=== PATIENT | male | born 1995 | race African-American/Black ===

== ENCOUNTER 2025-04-22 00:47 | Emergency (ER) | payer SELFPAY ==
[2025-04-22] VITALS (20 sets, daily range): BP systolic 110–141; BP diastolic 67–91; PULSE 84–110; RESP 11–25; O2SAT 92–100
--- NOTE | ~2025-04-22 | XR_ITS ---
Examination: XR chest 1V portable Clinical History: CHEST PAIN Comparison: None Technique: Portable AP Findings: Heart size normal. Lungs clear. No acute bony abnormality. IMPRESSION: 1. No acute cardiopulmonary findings given portable technique. Reviewed, dictated and finalized at location [facility]
--- NOTE | 2025-04-22 00:50 | ECG_ITS ---
Test Date: 2025-04-22 02:05:13 Measurements Intervals Mccormick Rate: 100 P: 21 NM: 189 QRS: 0 QRSD: 85 T: 59 QT: 324 QTc: 418 Interpretive Statements SINUS TACHYCARDIA NONSPECIFIC T-WAVE ABNORMALITY- HIGH LATERAL LEADS BASELINE ARTIFACT- I, III, AVR, AVL, V1-V2 BORDERLINE ECG No previous ECG available for comparison Electronically Signed On 04-22-2025 08:35:36 HAND OUTSIDE CUTTER by Kraig Garcia D.O.
--- NOTE | 2025-04-22 01:12 | ED_ITS ---
HPI - Chest Pain General Chief Complaint: Chest Pain Stated Complaint: chest discomfort x 2 days Time Seen by Provider: 04/22/25 00:57 History of Present Illness HPI narrative: 29-year-old otherwise healthy male presenting to the emergency department with left-sided chest discomfort for last 3 days. States the pain is like a dull ache in the left-sided anterior portion of his chest. Does not radiate anywhere but he did have some mild jaw pain when he woke up yesterday after yawning and that went away and he feels like it was separate and unrelated. Denies any shortness of breath, but states that with a deep breath and movement of his chest causes some more reproducible dullness in his left chest wall. No nausea, vomiting. No diaphoresis, abdominal pain, back pain. No recent travel recent procedures/ surgeries. Does not take any chronic medications. Tried some Tums at home with no changes symptoms. No cardiac history. 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 Was otherwise in his normal state of health. Related Data Allergies Allergy/AdvReac Type Severity Reaction Status Date / Time No Known Allergies Allergy Verified 04/22/25 00:48 Review of Systems 2 Review of Systems: As reviewed above in HPI All systems reviewed & are unremarkable except as noted in HPI and below Exam 2 Narrative: GENERAL: [Well-appearing, well-nourished, and in no acute distress.] HEAD: [Normocephalic, atraumatic.] EYES: [PERRLA and EOMI.] ENT: Nares clear, no rhinorrhea or epistaxis. Mucous membranes moist. NECK: Supple. CHEST: pain reproducible with palpation left anterior chest wall. No overlying skin deformity or bruising. No crepitus to palpation. Clear to auscultation. No respiratory distress. HEART: [Regular rate and rhythm]. No murmur heard. [Normal peripheral pulses.] ABDOMEN: [Soft, nondistended], [nontender], [No rigidity or guarding] EXTREMITIES: Normal range of motion. [No edema.] SKIN: Warm, dry, no rash. NEURO: [No focal deficits]. Alert and oriented [x3.] PSYCH: [Normal mood and affect.] Course Vital Signs Vital signs: Vital Signs Pulse Rate 110 H 04/22/25 01:01 Respiratory Rate 20 04/22/25 01:01 Blood Pressure 135/91 H 04/22/25 01:01 Pulse Oximetry 100 04/22/25 01:01 Oxygen Delivery Room Air 04/22/25 01:01 Pulse Rate 88 04/22/25 04:00 Respiratory Rate 22 H 04/22/25 03:45 Blood Pressure 141/67 H 04/22/25 03:01 Pulse Oximetry 97 04/22/25 03:30 Oxygen Delivery Room Air 04/22/25 01:01 MDM MDM Narrative Medical decision making narrative: 29-year-old otherwise healthy male presenting to the emergency department with left-sided chest discomfort for last 3 days. States the pain is like a dull ache in the left-sided anterior portion of his chest. Does not radiate anywhere but he did have some mild jaw pain when he woke up yesterday after yawning and that went away and he feels like it was separate and unrelated. Denies any shortness of breath, but states that with a deep breath and movement of his chest causes some more reproducible dullness in his left chest wall. No nausea, vomiting. No diaphoresis, abdominal pain, back pain. No recent travel recent procedures/ surgeries. Does not take any chronic medications. Tried some Tums at home with no changes symptoms. No cardiac history. 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 Was otherwise in his normal state of health. Patient otherwise appears well not any distress. 100% on room air. Mildly tachycardic but he does appear anxious. He has some reproducible pain with dull sensation is left anterior chest worse with movement and deep breathing. No cardiac risk factors aside from obesity. Low suspicion ACS most likely musculoskeletal pathology. low suspicion intrathoracic process such as pneumonia, pneumothorax. Low wells criteria for PE. Will obtain cardiac workup at this time chest x-ray, EKG, troponin ordered. Given Toradol for analgesia and re-evaluated after. Workup shows no leukocytosis or significant anemia. Normal platelet count. Negative troponin. Negative delta troponin. EKG nonischemic. Chest x-ray shows no pneumothorax consolidation. D-dimer is negative. Electrolytes largely unremarkable. LFTs largely unremarkable. Normal kidney function. Symptoms likely musculoskeletal in nature. Workup unremarkable he is safe for discharge with regular outpatient primary care provider follow-up. Prescriptions for anti-inflammatories provided. Safe for discharge. Differential Diagnosis Differential Diagnosis: Low suspicion ACS most likely musculoskeletal pathology. low suspicion intrathoracic process such as pneumonia, pneumothorax. Low wells criteria for PE. Lab Data MDM Lab Attestation statement: I personally reviewed the patient's lab results. 04/22/25 03:39 04/22/25 01:18 Labs: Lab Results 04/22/25 04/22/25 Range/Units 01:18 03:39 WBC 9.7 (4.5-10.0) K/mm3 RBC 4.71 (4.6-6.20) M/mm3 Hgb 13.4 L (14.0-18.0) g/dL Hct 39.7 L (42.0-52.0) % MCV 84.3 (80-100) fl MCH 28.5 (26-34) pg MCHC 33.8 (32-36) g/dl RDW 12.8 (11.5-14.5) % Plt Count 282 (150-375) k/mm3 MPV 9.2 (7.4-10.4) fl Immature Gran % (Auto) 0.4 (0-0.5) % Neut % (Auto) 69.1 (45.5-73.1) % Lymph % (Auto) 22.8 (18.3-44.2) % [place] % (Auto) 6.7 (2.6-8.5) % Eos % (Auto) 0.6 (0-4.4) % Baso % (Auto) 0.4 (0.2-1.2) % Lymph # (Auto) 2.21 (0.9-3.2) K/mm3 [place] # (Auto) 0.7 H (0.1-0.6) K/mm3 Eos # (Auto) 0.1 (0-0.3) K/mm3 Baso # (Auto) 0.0 (0.0-0.1) K/mm3 Abs Immat Gran (auto) 0.04 H (0.00-0.031) K/mm3 Absolute Neuts (auto) 6.7 (1.3-6.7) K/mm3 Absolute Nucleated RBC 0.000 (0.0-0.012) K/mm3 Nucleated RBC % 0.0 (0.0-0.2) % PT Cancelled 16.1 H INR Cancelled 1.3 APTT Cancelled 32.5 D-Dimer 0.28 (<0.48) ug/mL Sodium 139 (137-145) mmol/L Potassium 3.3 L (3.4-5.0) mmol/L Chloride 102 (98-107) mmol/L Carbon Dioxide 27 (22-30) mmol/L Anion Gap 10 (4-12) mmol/L BUN 18 (9-20) mg/dL Creatinine 0.82 (0.7-1.3) mg/dL Estim Creat Clear Calc 138 ml/min Estimated GFR > 60 (59 - ) Glucose 141 H (65-110) mg/dL Calcium 9.6 (8.4-10.2) mg/dL Total Bilirubin 0.5 (0.2-1.3) mg/dL AST 44 (17-59) U/L ALT 53 H (6-50) U/L Alkaline Phosphatase 70 (38-126) U/L Troponin I < 0.012 < 0.012 (0.000-0.034) ng/mL Total Protein 8.7 H (6.3-8.2) g/dL Albumin 4.8 (3.5-5.1) g/dL Lipase 56 (23-300) U/L Imaging Data Attestation: I personally reviewed and interpreted this imaging study as follows: My impression: No PNA or PTX Radiologist's impression: ITS Impressions Chest X-Ray 04/22/25 06:38 IMPRESSION: 1. No acute cardiopulmonary findings given portable technique. Discharge Plan Discharge Clinical Impression: Chest pain Patient Disposition: Home Condition: Stable Instructions: Antibiotic Form, Chest Pain (ED), Chest Wall Pain (ED) Additional Instructions: Cardiac workup and laboratory studies are reassuring today. No signs of any cardiac disease or damage. Blood clot test negative. No signs of infection or pneumonia. No collapsed lung. Symptoms consistent with musculoskeletal strain likely in the pectoralis muscles. We have prescribed anti-inflammatories to take every 8 hours for pain control. Return with any emergent concerns otherwise follow-up with a primary care provider. We have also referred you to a new one if you do not have a PCP. Patient Language: Liberian Prescriptions: New ibuprofen 800 mg tablet 800 mg PO TID PRN (Reason: pain) Qty: 30 0RF acetaminophen [Tylenol Extra Strength] 500 mg tablet 1,000 mg PO TID PRN (Reason: pain) Qty: 30 0RF Follow-up/Referrals: Frank Sanchez MD [Physician, Family Practice] - 1 Week Referral Note: PCP establish UNKNOWN,DOCTOR [Primary Care Provider] Time of Disposition: 04:53
--- OUTSIDE RECORDS SUMMARY | 2025-04-22 01:41 | XMS_ITS | Clinical Summary ---
Author Organization [facility] Address [address] [place] [address] Care Team Providers Care Estate Planning Attorney Name Role Phone Unavailable Primary Care Provider Unavailabl e Source Comments [facility],non-owned Affiliates and Associated Physician Practices is amultiple site organization consisting of ambulatory clinics and hospital sitesin [place], [place], [place] and [place]. This disclosure is being madepursuant to the Care Everywhere program and may not contain all information available regarding this patient. Last updated 18.[facility] Allergies No known active allergies Medications * Be aware that medications may not be up to date on this document. Alwaysverify current medications with the patient. No known medications Social History Tobacco Use Types Packs/Day Years Used Date Smoking Tobacco: Never Smokeless Tobacco: Never Sex and Gender Information Value Date Recorded Sex Assigned at Not on file Legal Sex Male 2:19 PM CDT Gender Identity Not on file Sexual Orientation Not on file Last Filed Vital Signs Vital Sign Reading Time Taken Comments Blood Pressure 110/64 01/15/2018 10:09 AM CDT Pulse 78 01/15/2018 10:09 AM CDT Temperature 37.2 C (98.9 F) 01/15/2018 10:09 AM CDT Respiratory Rate 16 01/15/2018 10:09 AM CDT Oxygen Saturation 98% 01/15/2018 10:09 AM CDT Inhaled Oxygen Concentration - - Weight 75.3 kg (166 lb) 01/15/2018 10:09 AM CDT Height 167.6 cm (5' 6) 01/15/2018 10:09 AM CDT Body Mass Index 26.79 01/15/2018 10:09 AM CDT Plan of Treatment Health Maintenance Due Date Last Done Comments HIV SCREENING 2008 HEPATITIS C SCREENING 08/12/2011 DTAP/TDAP/TD VACCINES (1 - Tdap) 2012 HEPATITIS B VACCINE (1 of 3 - 19+ 3-dose series) 2012 HPV VACCINE (1 - 3-dose SCDM series) 2020 DEPRESSION SCREENING 04/25/2024 COVID-19 VACCINE (1 - 2024-2 6 season) 2024 INFLUENZA VACCINE (#1) 2024 ZOSTER VACCINE (1 of 2) 08/17/2043 HIB VACCINE Aged Out No longer eligi ble based on patient's age to complete this topic MENINGOCOCCAL (Group B) VACC INE SHARED DECISION-MAKING Aged Out No longer eligibl e based on patient's age to complete this topic MENINGOCOCCAL GROUPS A/C/Y/W VACCINE Aged Out No longer eligible b ased on patient's age to complete this topic PNEUMOCOCCAL VACCINE Aged Out No long er eligible based on patient's age to complete this topic Insurance .[address] [place] [id number] [facility]
[2025-04-22 01:44] LABS: Alanine Aminotransferase 53 U/L (6-50); Albumin Level 4.8 g/dL (3.5-5.1); Alkaline Phosphatase 70 U/L (38-126); Anion Gap 10 mmol/L (4-12); Aspartate Amino Transferase 44 U/L (17-59); Bilirubin,Total 0.5 mg/dL (0.2-1.3); Blood Urea Nitrogen 18 mg/dL (9-20); Calcium 9.6 mg/dL (8.4-10.2); Carbon Dioxide 27 mmol/L (22-30); Chloride 102 mmol/L (98-107); Estimated CRCL calculation 138 ml/min; Estimated Glomerular Filt Rate > 60; Glucose 141 mg/dL (65-110); Lipase 56 U/L (23-300); Potassium 3.3 mmol/L (3.4-5.0); Sodium 139 mmol/L (137-145); Total Protein 8.7 g/dL (6.3-8.2)
[2025-04-22 01:54] LABS: Troponin I < 0.012 ng/mL (0.000-0.034)
[2025-04-22] MEDS: KETOROLAC 15 MG/ML VIAL (*BKC) IV PUSH (01:55)
[2025-04-22] MEDS: ASPIRIN 81 MG CHEWABLE TABLET 324 MG PO (01:55)
--- NOTE | 2025-04-22 02:57 | PC.NURSE ---
called lab regarding unresulted blood and the was told that it hemolyzed hours ago. lab did not notify the staff per protocol labs to be redrawn
[2025-04-22 03:53] LABS: Hematocrit 39.7 % (42.0-52.0); Hemoglobin 13.4 g/dL (14.0-18.0); Immature Granulocyte Percent A 0.4 % (0-0.5); Lymphocytes Absolute Auto 2.21 K/mm3 (0.9-3.2); Mean Corpuscular HGB Conc 33.8 g/dl (32-36); Mean Corpuscular Hemoglobin 28.5 pg (26-34); Mean Corpuscular Volume 84.3 fl (80-100); Nucleated Red Blood Cells Absolute Auto 0.000 K/mm3 (0.0-0.012); Nucleated Red Blood Cells Perc 0.0 % (0.0-0.2); Platelet Count Result 282 k/mm3 (150-375); Red Blood Count 4.71 M/mm3 (4.6-6.20); White Blood Count 9.7 K/mm3 (4.5-10.0)
[2025-04-22 04:14] LABS: INR 1.3; Prothrombin Time 16.1 Seconds (11.1-14.7)
[2025-04-22 04:15] LABS: Partial Thromboplastin Time 32.5 Seconds (22.3-36.8)
[2025-04-22 04:41] LABS: Troponin I < 0.012 ng/mL (0.000-0.034)
== END 2025-04-22 05:17 | disposition home or self-care (01) ==
PROVIDERS: Emergency Provider Student in an Organized Health Care Education/Training Program
DX: R07.89 Other chest pain (principal); R00.0 Tachycardia, unspecified; R94.31 Abnormal electrocardiogram [ECG] [EKG]
CPT/HCPCS: 36415; 71045; 80053; 83690; 84484; 85025; 85380; 85610; 85730; 93005; 96374; 99284; A9270; J1885